=== PATIENT | female | born 1945 | race Caucasian/White ===

== ENCOUNTER 2020-12-13 14:24 | Emergency (ER) | payer MEDICARE, SELFPAY ==
[2020-12-13 14:32] VITALS: BP 188/96; PULSE 111; RESP 18; O2SAT 96
[2020-12-13 14:33] VITALS: BP 188/96; PULSE 111; RESP 20; TEMP 36.8; O2SAT 98
[2020-12-13] MEDS: Lidocaine/Epinephri/Tetracaine Topical Gel 3 ML TP (14:57)
--- NOTE | 2020-12-13 15:41 | ED.GENADUL_ITS ---
Discharge Plan Disposition Patient Disposition: HOME Condition: Stable Discharge Details Clinical Impression: Head injury, Laceration Primary Care Provider: Lynn Meehan ED Provider: Siri Miller Home Meds and New Rx's Prescriptions: Continued pravastatin 80 mg tablet 80 mg PO DAILY RF: 0 amitriptyline 25 mg tablet 25 mg PO HS RF: 0 omeprazole 20 mg capsule,delayed release(DR/EC) 20 mg PO BID RF: 0 Discharge Instructions Instructions: Laceration (ED), Head Injury (ED) Additional Instructions: 2 james to be removed in 7 days, can return here or see pcp keep diet light, may experience nausea can use acetaminophen as directed if needed for headache. return for new or worsening symptoms. Referrals: Lynn Meehan [Primary Care Provider] - Discharge Data Discharge Date/Time-TO BE ENTERED AT DEPARTURE: 12/13/20 18:00 Medical Decision Making <GABRIELA Johnson - Last Filed: 12/14/20 14:52> 75-year-old female, not anticoagulated, presents for a head injury status post fall. No LOC or neck pain. Given her age and the mechanism of injury will obtain CT imaging of the head and C-spine. Will update tetanus. Will apply LET to the laceration and once back from CT will repair with james after cleaning thoroughly. Patient appears well, nontoxic and is neurologically intact. She is comfortable this plan and has no additional questions or concerns. <Siri Miller NP - Last Filed: 12/13/20 18:05> care of patient received. patient has been hemodynamically stable with only c/o headache at this time. awaiting CT results. wound cleansed with NS, no further bleeding. 2 james inserted, patient tolerated well Medical Records Medical records reviewed: Yes I reviewed the patient's medical records. Imaging Data Radiologic Study: Imaging: CT Scan Radiologist's impression: PROCEDURE INFORMATION: Exam: CT Head Without Contrast Exam date and time: 12/13/2020 2:52 PM Age: 75 years old Clinical indication: Injury or trauma; Abrasion; Head, generalized; Sprain or strain, cervical ligaments; Patient HX: S/P fall no loc. TECHNIQUE: Imaging protocol: Computed tomography of the head without contrast. Radiation optimization: All CT scans at this facility use at least one of these dose optimization techniques: automated exposure control; mA and/or kV adjustment per patient size (includes targeted exams where dose is matched to clinical indication); or iterative reconstruction. COMPARISON: No relevant prior studies available. FINDINGS: Brain: Normal. No hemorrhage. Unremarkable white matter. No mass effect. Cerebral ventricles: No ventriculomegaly. Paranasal sinuses: Visualized sinuses are unremarkable. No fluid levels. Mastoid air cells: Visualized mastoid air cells are well aerated. Bones/joints: Unremarkable. No acute fracture. Soft tissues: Left posterior scalp hematoma. IMPRESSION: 1. No acute intracranial abnormality. 2. Left posterior scalp hematoma. PROCEDURE INFORMATION: Exam: CT Cervical Spine Without Contrast Exam date and time: 12/13/2020 2:52 PM Age: 75 years old Clinical indication: Injury or trauma; Abrasion; Head, generalized; Sprain or strain, cervical ligaments; Patient HX: S/P fall no loc. TECHNIQUE: Imaging protocol: Computed tomography images of the cervical spine without contrast. Radiation optimization: All CT scans at this facility use at least one of these dose optimization techniques: automated exposure control; mA and/or kV adjustment per patient size (includes targeted exams where dose is matched to clinical indication); or iterative reconstruction. COMPARISON: No relevant prior studies available. FINDINGS: Bones/joints: No acute fracture or dislocation is noted. Discs/Spinal canal/Neural foramina: Multilevel uncovertebral joint hypertrophy and intervertebral disc space narrowing are present. Hypertrophic degenerative changes of the facet joints are present. Hypertrophic degenerative changes at the atlantodental joint are present. Multilevel neural foraminal narrowing is present. Lungs: No suspicious masses are noted. Soft tissues: Atherosclerotic calcifications are present. IMPRESSION: 1. Chronic degenerative changes of the spine. 2. No acute fracture or dislocation. Dictated and Authenticated by: Ezequiel Dodge MD. Ordering:ANI White MD HPI <GABRIELA Johnson - Last Filed: 12/14/20 14:52> General Mode of arrival: ambulatory . Date/Time Provider Initiated Documentation: 12/13/20 14:42 . Limitations to Documentation: no limitations . Information obtained by: patient . HPI Narrative: This is a 75-year-old female, not anticoagulated, who presents ambulatory via private car for evaluation of a head injury that she sustained about 2 hours ago. Patient states that she was standing on a chair putting up [place] decorations leaning forward, fell off the chair landing on the ground, denies injury then but then subsequently fell down 4 stairs striking the back of her head sustaining a laceration. She denies LOC but does report a mild dull global headache. She denies neck pain, chest pain, shortness of breath, abdominal pain, nausea or vomiting. Reports a small bruise to her left lower leg that does not hurt. Also reports a small abrasion to her right upper extremity but again this is not painful. Patient denies any incontinence, numbness, tingling, weakness. Tetanus status is not up to date. Related Data Home Medications Medication Instructions Recorded Confirmed amitriptyline 25 mg PO HS 12/13/20 12/13/20 omeprazole 20 mg PO BID 12/13/20 12/13/20 pravastatin 80 mg PO DAILY 12/13/20 12/13/20 Allergies Allergy/AdvReac Type Severity Reaction Status Date / Time sulfamethoxazole Allergy Skin Rash Unverified 12/13/20 14:40 [From Bactrim] trimethoprim [From Bactrim] Allergy Skin Rash Unverified 12/13/20 14:40 General Stated Complaint: HeadInjury CAYLA: 3 Review of Systems <GABRIELA Johnson - Last Filed: 12/14/20 14:52> Constitutional Constitutional: Denies fever(s), Reports headache(s) and Denies weakness Eyes Eyes: Denies change in vision ENT Ears, Nose, Mouth, and Throat: Reports headache(s) and Denies neck pain Cardiovascular Cardiovascular: Denies chest pain and Denies dyspnea Respiratory Respiratory: Denies dyspnea Gastrointestinal Gastrointestinal: Denies abdominal pain, Denies nausea and Denies vomiting Genitourinary Genitourinary: Denies urinary incontinence Musculoskeletal Musculoskeletal: Denies deformity, Denies arthralgias, Denies neck pain, Denies numbness and Denies tingling Integumentary/Breasts Skin/Breast: Denies rash Neurologic Neurologic: Reports headache(s), Denies numbness, Denies tingling and Denies weakness Hematologic/Lymphatic Hematologic/Lymphatic: Denies easy bleeding and Denies easy bruising PFSH <GABRIELA Johnson - Last Filed: 12/14/20 14:52> Social History Smoking/Tobacco Use Status: Never Smoking risk assessment performed?: Yes Alcohol Intake: current Alcohol Intake frequency: a few times a week Drug use: Never Do you feel safe at home: Yes Do you feel safe in your relationship?: Yes Exam <GABRIELA Johnson - Last Filed: 12/14/20 14:52> Const General: cooperative, healthy appearing, comfortable and no acute distress Orientation: alert, awake and oriented x3 HENMT Head: no palpable skull fracture and normocephalic Head images: 1. Contusion, 1 cm vertical laceration. Bleeding controlled. No crepitus or palpable fracture Ears: external ears normal, TM's normal bilaterally and EAC's normal Face and sinus: normal facial exam Mouth: moist mucous membranes Eyes General: appearance normal, both eyes and all related structures Alignment and Position: alignment normal Periorbital: periorbital findings normal Eyelids: eyelids normal Conjunctivae: conjunctivae normal Sclera: sclerae normal Cornea: corneas normal Pupils: PERRL EOM: EOM intact bilaterally Direct ophthalmoscopy: normal light reflex Neck Neck: normal visual inspection, full ROM, trachea midline, supple and nontender Chest Chest: normal palpation of entire chest wall Resp Effort & Inspection: normal respiratory effort and able to speak in complete sentences Auscultation: clear to auscultation bilaterally Cardio Rate: regular rate Rhythm: regular rhythm GI Palpation: soft and nontender Back/Spine/Pelvis Back: no CVA tenderness and No back tenderness Skin General skin exam: no rashes or lesions noted Neuro General: patient alert, patient awake, patient oriented x3, moves all extremities and no focal motor deficits Cranial Nerves: CN's II-XI intact bilaterally Cognition: normal cognition Speech: speech normal Gait: normal gait Motor: muscle tone normal throughout and strength 5/5 throughout Sensory Exam: no sensory deficits noted Extrem General: full ROM Elbow/forearm/wrist images: 1. Contusion Upper/lower leg/hip images: 1. Contusion Psych Appearance: grossly normal Mental Status: mental status grossly normal Course <GABRIELA Johnson - Last Filed: 12/14/20 14:52> Vital Signs Vital signs: Vital Signs Temperature 36.8 C 12/13/20 14:33 Pulse 111 H 12/13/20 14:33 Respiratory Rate 20 12/13/20 14:33 Blood Pressure 188/96 H 12/13/20 14:33 Pulse Oximetry 98 12/13/20 14:33 Temperature 36.8 C 12/13/20 14:33 Temperature Source Temporal Artery Scan 12/13/20 14:33 Pulse 111 H 12/13/20 14:33 Respiratory Rate 20 12/13/20 14:33 Respiratory Effort Non-Labored 12/13/20 14:43 Respiratory Depth Normal 12/13/20 14:43 Respiratory Pattern Normal 12/13/20 14:43 Blood Pressure 188/96 H 12/13/20 14:33 Blood Pressure Position Sitting 12/13/20 14:33 Pulse Oximetry 98 12/13/20 14:33 Oxygen Delivery Method Room Air 12/13/20 14:33 Oxygen Flow Rate 0 12/13/20 14:33 Pain Level 6 12/13/20 14:43 <Siri Miller NP - Last Filed: 12/13/20 18:05> Laceration Laceration 1: Site: scalp (left posterior) Side (If applicable): left Size (cm): 2 Description: linear Depth: simple, single layer Local Anesthetic: other anesthetic (LET) Technique: other (2 james placed) Sign Out <GABRIELA Johnson - Last Filed: 12/14/20 14:52> Sign Out Data: Sign Out Comment: Fall, awaiting head and C-spine CT. Tetanus updated. LET applied. Assuming negative head and C-spine CT, stable laceration and DC home Last updated by Christopher Jarquin PA at 12/13/20 15:58 PAWSS <GABRIELA Johnson - Last Filed: 12/14/20 14:52> Have you Been Recently Intoxicated or Drunk Within the Last 30 days?: No Have you Ever Experienced Previous Episodes of Alcohol Withdrawal?: No Have you ever Experienced Withdrawal Seizures?: No Have you ever Experienced Delirium Tremens(DT)s?: No Have you ever undergone Alcohol Rehabilitation Treatment (i.e, inpt ot outpatient treatment programs)?: No Have you ever Experienced Blackouts?: No Have you ever Combined Alcohol with other Downers within the last 90 days?: No Have you ever Combined Alcohol with any other Substance of Abuse during the last 90 days?: No Positive Blood Alcohol level on Presentation? [PCS.BAL]: No Evidence of Increased Autonomic Activity (i.e. HR>120, tremor, sweating, agitation, nausea)?: No Result: 0
--- NOTE | 2020-12-13 17:05 | DI.CT_ITS ---
Exam(s) CT HEAD CERVICAL SPINE WO EXAM: CT HEAD CERVICAL SPINE WO CLINICAL HISTORY: fall/head injury. TECHNIQUE: Imaging Protocol: Axial computed tomography images with coronal and sagittal reformatted images were created and reviewed COMPARISON: No exams were available for comparison FINDINGS: BRAIN: There is a left posterior parietal scalp hematoma. There are no skull fractures nor fluid in the visualized paranasal sinuses. There is no evidence of intracranial hemorrhage, mass effect, or shift of midline structures. There are no extra-axial fluid collections. The ventricles are not enlarged or shifted and there is no blo od within the ventricular system nor within the basal cisterns. CERVICAL SPINE: There is no evidence of fracture nor listhesis. No significant prevertebral soft tissue swelling. Chronic advanced disc space narrowing throughout the cervical spine with the exception of C2-3 level where there is relative preservation of disc height. There is mild reversal of the normal lordotic curvature of the cervical spine. Multilevel degenerati ve changes are noted in the facet joints. There is no significant facet joint malalignment. No significant osseous lesions evident. IMPRESSION: No acute intracranial findings on this noninfused CT scan of the brain. No evidence of cervical spine fracture, malalignment, nor acute compromise of the cervical spinal can al. RADIATION DOSE DELIVERED: 1,116.11mGy.cm Total DLP DATA REPOSITORY: All CT scans at this facility are submitted to the National Radiology Data Registry (NRDR) Dose Index Registry (DIR) with the [employer] ([employer]). RADIATION OPTIMIZATION: All CT scans at this facility use at least one of these dose optimization te chniques: automated exposure control; mA and/or kV adjustment per patient size (includes targeted exa ms where dose is matched to clinical indication); or iterative reconstruction.
[2020-12-13] MEDS: Acetaminophen 500 MG TAB 1000 MG PO (17:52)
--- NOTE | 2020-12-13 17:53 | DI.VRAD_ITS ---
PROCEDURE INFORMATION: Exam: CT Head Without Contrast Exam date and time: 12/13/2020 2:52 PM Age: 75 years old Clinical indication: Injury or trauma; Abrasion; Head, generalized; Sprain or strain, cervical ligaments; Patient HX: S/P fall no loc. TECHNIQUE: Imaging protocol: Computed tomography of the head without contrast. Radiation optimization: All CT scans at this facility use at least one of these dose optimization techniques: automated exposure control; mA and/or kV adjustment per patient size (includes targeted exams where dose is matched to clinical indication); or iterative reconstruction. COMPARISON: No relevant prior studies available. FINDINGS: Brain: Normal. No hemorrhage. Unremarkable white matter. No mass effect. Cerebral ventricles: No ventriculomegaly. Paranasal sinuses: Visualized sinuses are unremarkable. No fluid levels. Mastoid air cells: Visualized mastoid air cells are well aerated. Bones/joints: Unremarkable. No acute fracture. Soft tissues: Left posterior scalp hematoma. IMPRESSION: 1. No acute intracranial abnormality. 2. Left posterior scalp hematoma. PROCEDURE INFORMATION: Exam: CT Cervical Spine Without Contrast Exam date and time: 12/13/2020 2:52 PM Age: 75 years old Clinical indication: Injury or trauma; Abrasion; Head, generalized; Sprain or strain, cervical ligaments; Patient HX: S/P fall no loc. TECHNIQUE: Imaging protocol: Computed tomography images of the cervical spine without contrast. Radiation optimization: All CT scans at this facility use at least one of these dose optimization techniques: automated exposure control; mA and/or kV adjustment per patient size (includes targeted exams where dose is matched to clinical indication); or iterative reconstruction. COMPARISON: No relevant prior studies available. FINDINGS: Bones/joints: No acute fracture or dislocation is noted. Discs/Spinal canal/Neural foramina: Multilevel uncovertebral joint hypertrophy and intervertebral disc space narrowing are present. Hypertrophic degenerative changes of the facet joints are present. Hypertrophic degenerative changes at the atlantodental joint are present. Multilevel neural foraminal narrowing is present. Lungs: No suspicious masses are noted. Soft tissues: Atherosclerotic calcifications are present. IMPRESSION: 1. Chronic degenerative changes of the spine. 2. No acute fracture or dislocation. Dictated and Authenticated by: Ezequiel Dodge MD. Ordering:ANI White MD
[2020-12-13 18:05] VITALS: BP 188/96; PULSE 111; RESP 20; TEMP 36.8; O2SAT 98
== END 2020-12-13 18:00 | disposition home or self-care (01) ==
PROVIDERS: Emergency Provider Nurse Practitioner Acute Care; PCP Nurse Practitioner
DX: S01.01XA Laceration without foreign body of scalp, initial encounter (principal); W10.8XXA Fall (on) (from) other stairs and steps, initial encounter
CPT/HCPCS: 12001; 90471; 99284; 70450; 72125; 99283